=== PATIENT | male | born 1940 | race African-American/Black ===

== ENCOUNTER 2019-10-18 08:30 | Day surgery (SDC) | payer OTHER ==
[~2019-10-18 08:30] MED LIST: LIPITOR20 MG PO; METFORMIN HCL1000 M2 PO; NORVASC10 MG PO; TOPROL XL50 M1 PO
== END 2019-10-18 20:00 | disposition home or self-care (01) ==
LOC: CIR.AMB 08:30
PROVIDERS: ATTEND Orthopaedic Surgery
DX: M75.122 Complete rotator cuff tear or rupture of left shoulder, not specified as traumatic (principal); M75.22 Bicipital tendinitis, left shoulder; Z20.828 Contact with and (suspected) exposure to other viral communicable diseases
CPT/HCPCS: 23406; 29823; 29826; 29827; C1776